=== PATIENT | female | born 1945 | race Caucasian/White ===

== ENCOUNTER 2019-09-02 15:57 | Outpatient (CLI) | payer MEDICARE, SELFPAY ==
--- NOTE | ~2019-09-02 | MM_ITS ---
EXAMINATION: MM screening [facility] BI w danelle HISTORY: Screening mammogram TECHNIQUE: Craniocaudal and mediolateral oblique 3-D tomosynthesis images were obtained and synthetic 2-D images were generated. CAD analysis was submitted and interpreted. COMPARISON: 03/28/2017, 03/10/2017, 11/01/2015 BREAST PARENCHYMAL COMPOSITION: There are scattered areas of fibroglandular density. FINDINGS: There is no evidence of suspicious mass, calcification, or architectural distortion to sugg est malignancy in either breast. There has been no suspicious interval change. IMPRESSION: 1. No mammographic evidence of malignancy. 2. Recommend routine screening mammography in one year. BI-RADS Category 1: Negative Reviewed, dictated and finalized at location A. [employer]
== END 2019-09-02 15:58 | disposition home or self-care (01) ==
PROVIDERS: Visit Provider Nurse Practitioner Obstetrics & Gynecology
DX: Z12.31 Encounter for screening mammogram for malignant neoplasm of breast (principal)
CPT/HCPCS: 77063; 77067

== ENCOUNTER 2020-11-14 16:31 | Outpatient (CLI) | payer MEDICARE, SELFPAY ==
--- NOTE | ~2020-11-14 | MM_ITS ---
EXAMINATION: MM screening [facility] BI w danelle HISTORY: Screening TECHNIQUE: Craniocaudal and mediolateral oblique 3-D tomosynthesis images were obtained and synthetic 2-D images were generated. CAD analysis was submitted and interpreted. COMPARISON: Comparison to multiple prior studies sequentially, with oldest reviewed study dated 03/09. BREAST PARENCHYMAL COMPOSITION: There are scattered areas of fibroglandular density. FINDINGS: There is no evidence of suspicious mass, calcification, or architectural distortion to sugg est malignancy in either breast. There has been no suspicious interval change. IMPRESSION: 1. No mammographic evidence of malignancy. 2. Recommend routine screening mammography in one year. BI-RADS Category 1: Negative Reviewed, dictated and finalized at location A.
== END 2020-11-14 16:32 | disposition home or self-care (01) ==
LOC: ANHIMG 16:37
PROVIDERS: Visit Provider Physician Assistant Medical
DX: Z12.31 Encounter for screening mammogram for malignant neoplasm of breast (principal)
CPT/HCPCS: 77063; 77067

== ENCOUNTER 2021-11-20 10:12 | Outpatient (CLI) | payer MEDICARE, SELFPAY ==
--- NOTE | ~2021-11-20 | MM_ITS ---
EXAMINATION: MM screening [facility] BI w danelle HISTORY: Screening TECHNIQUE: Craniocaudal and mediolateral oblique 3-D tomosynthesis images were obtained and synthetic 2-D images were generated. CAD analysis was submitted and interpreted. COMPARISON: Comparison to multiple prior studies sequentially, with oldest reviewed study dated 03/09. BREAST PARENCHYMAL COMPOSITION: There are scattered areas of fibroglandular density. FINDINGS: There is no evidence of suspicious mass, calcification, or architectural distortion to sugg est malignancy in either breast. There has been no suspicious interval change. IMPRESSION: 1. No mammographic evidence of malignancy. 2. Recommend routine screening mammography in one year. BI-RADS Category 1: Negative Reviewed, dictated and finalized at location A.
--- NOTE | ~2021-11-20 | DEXA_ITS ---
Bone Density Report Name: TANVIR RIOS Age: 76 Sex: Female Ethnicity: White Date of : 1945 Indication: postmenopausal; screening for osteoporosis; hysterectomy; Referring Provider: LENA RASHID Study: Bone densitometry was performed. Exam Date: November 20, 2021 Accession number: [id number] Bone Density: Region BMD T-score Z-score Classification AP Spine(L1-L4) 1.174 1.2 3.7 Normal Femoral Neck (Left) 0.720 -1.2 1.1 Osteopenia Total Hip (Left) 0.857 -0.7 1.3 Normal Femoral Neck (Right) 0.847 0.0 2.2 Normal Total Hip (Right) 0.868 -0.6 1.4 Normal Total Hip Mean 0.863 -0.7 1.4 Normal World Health Organization criteria for BMD impression classify patients as: Normal (T-score at or above -1.0), Osteopenia (T-score between -1.0 and -2.5), or Osteoporosis (T-score at or below -2.5). 10-year Fracture Risk(1): Major Osteoporotic Fracture 6.9% Hip Fracture 1.5% Reported Risk Factors: [place], Neck BMD=0.720, BMI=25.1 (1) FRAX(R) Version 3.08. Fracture probability calculated for an untreated patient. Fracture probability may be lower if the patient has received treatment. Clinical Information Provided by Patient: Has used the following medications: HRT (i.e. estrogen/hormone therapy), Vitamin D, Calcium Has the following medical conditions: Hysterectomy Patient maximum height was 64 Menopause Age: 49 No regular weight bearing exercise Drinks caffeinated beverages Onset of menses at age 12 Number of children 2 Impression: The patient has low bone mass, based on the Left Femoral Neck T-score. The patient has an estimated ten-year risk of hip fracture of 1.5% and an estimated ten-year risk of major fracture of 6.9%, based on the WHO FRAX algorithm. Discussion: BONE DENSITY IS LOW AT ONE OR MORE SKELETAL SITES. This patient's lowest T-score is low at one or more skeletal sites. It meets the World Health Organization's (WHO) criteria for ?low bone mass? (T-score between -1.0 and -2.5). The patient's 10-year risk of fracture as calculated by FRAX is less than the threshold where pharmacological therapy is recommended by the National Osteoporosis Foundation (NOF). However, all treatment decisions require clinical judgment and consideration of individual patient factors, including patient preferences, comorbidities, previous drug use, risk factors not captured in the FRAX model (e.g., frailty, falls, vitamin D deficiency, increased bone turnover, interval significant decline in bone density) and possible under or overestimation of fracture risk by FRAX. The patient should follow a healthful lifestyle (good nutrition with adequate calcium and vitamin D, and appropriate weight-bearing exercise). Follow-Up: Consider repeating this study in 2 to 3 years to reassess this patien
== END 2021-11-20 10:13 | disposition home or self-care (01) ==
PROVIDERS: Visit Provider Advanced Practice Midwife
DX: Z12.31 Encounter for screening mammogram for malignant neoplasm of breast (principal); M81.0 Age-related osteoporosis without current pathological fracture; M85.852 Other specified disorders of bone density and structure, left thigh
CPT/HCPCS: 77063; 77067; 77080

== ENCOUNTER 2022-10-09 12:46 | Emergency (ER) | payer MEDICARE, SELFPAY ==
--- NOTE | 2022-10-09 12:52 | ED.GENADULT ---
HPI - General Adult General Chief complaint: Unspecified Stated complaint: High B/P Time Seen by Provider: 10/09/22 12:52 Source: patient Mode of arrival: ambulatory Limitations: no limitations History of Present Illness HPI narrative: 77 yo F presentes stating she was at the dentist office and was told BP was high. 170s systolic. States they told me it was alarming and should get it checked out . Pt denies CP, SOB. no headaches. States she has been feeling fine. Saw her BP 3 months ago and didn't mention her BP being abnormal. Came here to have it rechecked. All systems reviewed and negative except as noted above. Related Data Home Medications Medication Instructions Recorded Confirmed bimatoprost 0.01 % eye drops drp 10/09/22 (Becky) celecoxib 200 mg capsule mg 10/09/22 omeprazole 20 mg capsule,delayed mg 10/09/22 release paroxetine HCl 20 mg tablet mg PO 10/09/22 Allergies Allergy/AdvReac Type Severity Reaction Status Date / Time No Known Drug Allergies Allergy Unknown Unknown Verified 10/09/22 12:53 Review of Systems Review of Systems: CONSTITUTIONAL: Denies fever, chills, or sweats. EYES: Denies visual changes, redness, or discharge. ENT: Denies rhinorrhea, congestion, sore throat, or otalgia. CARDIOVASCULAR: Denies chest pain, palpitations, or edema. RESPIRATORY: Denies cough or dyspnea. GASTROINTESTINAL: Denies abdominal pain, nausea, vomiting, or diarrhea. GENITOURINARY: Denies dysuria or hematuria. SKIN: Denies rash or itching. MUSCULOSKELETAL: Denies back pain, joint pain, or myalgia. NEUROLOGIC: Denies headache, numbness, or weakness. PSYCHIATRIC: Denies anxiety or depression. All other systems reviewed are negative, except as documented in HPI. [facility] Family History Family History (Updated 07/08/13 @ 11:16 by DOCTOR UNKNOWN) Other Diabetes mellitus Social History Social History Smoking status: Never smoker Alcohol intake: current Comments At time of signature, agree with nursing past medical, surgical, social and family history. There is no relevant family history pertinent to the presenting complaint. Exam Narrative: GENERAL: This is a well-nourished, well-developed patient, in no apparent distress. HEAD: normocephalic, atraumatic. EYES: PERRL. Sclera clear/white. Vision is grossly intact. EARS: External ears normal NOSE: External nose normal NECK: Neck supple, non-tender without lymphadenopathy, masses or thyromegaly. CARDIOVASCULAR: Regular rate and rhythm without murmurs, gallops, or rubs. RESPIRATORY: Clear to auscultation. Breath sounds equal bilaterally. No wheezes, rales, or rhonchi. SKIN: warm, Dry, intact with no suspicious lesions or rash, good texture and turgor. NEURO: awake, alert, and oriented to person, place and time. There were no obvious focal neurologic abnormalities. EXTREMITIES: No joint tenderness, effusion, or edema noted. Course Course Level of Care: [facility] Visit Vital Signs Vital signs: Vital Signs Temperature 36.6 C 10/09/22 12:55 Pulse Rate 58 L 10/09/22 12:55 Respiratory Rate 16 10/09/22 12:55 Blood Pressure 154/74 H 10/09/22 12:55 Pulse Oximetry 99 10/09/22 12:55 Oxygen Delivery Room Air 10/09/22 12:55 Temperature 36.6 C 10/09/22 12:55 Pulse Rate 58 L 10/09/22 12:55 Respiratory Rate 16 10/09/22 12:55 Blood Pressure 154/74 H 10/09/22 12:55 Pulse Oximetry 99 10/09/22 12:55 Oxygen Delivery Room Air 10/09/22 12:55 Reviewed Medical Decision Making MDM Narrative Medical decision making narrative: Patient is aware of diagnosis, understands and agrees to treatment plan. Anticipatory guidance given. Patient agrees to follow-up as directed and is aware of reasons to seek care at the emergency department. Portions of this record may have been created with voice recognition software [facility]. Was 178/90 at dentist office. asymptomatic. recommend pt follow up
[2022-10-09 12:55] VITALS: BP 154/74; PULSE 58; RESP 16; TEMP 36.6; O2SAT 99
== END 2022-10-09 13:08 | disposition home or self-care (01) ==
PROVIDERS: Emergency Provider Nurse Practitioner Family; PCP Physician Assistant Medical
DX: R03.0 Elevated blood-pressure reading, without diagnosis of hypertension (principal); M19.90 Unspecified osteoarthritis, unspecified site; K21.9 Gastro-esophageal reflux disease without esophagitis; H40.9 Unspecified glaucoma; H26.9 Unspecified cataract
CPT/HCPCS: 99211; G0463